=== PATIENT | female | born 1950 ===

== ENCOUNTER 2017-05-12 05:10 | Inpatient (IN) | payer MEDICARE ==
--- NOTE | 2017-05-08 18:00 | Pre-op HX & Phy Repo 2 SIG ---
DATE OF ENDOSCOPY AND SURGERY: 05/12/2017. 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 The patient has a past history of familial adenomatous polyposis. In 1974, she underwent proctocolectomy with Kelin ileostomy. In 1988, she underwent creation of a Kock Pouch that failed and in 1990 underwent creation of a Barros type of Kock Pouch continent ileostomy. She has done well for years intubating three times per day with a 30-Lao intubation catheter and sleeping through the night. She does not have any difficulty with intubation and she does not have incontinence. She has a history of continuous pouchitis for many years, controlled with Cipro 250 mg b.i.d. for the past six years. Recently, the patient developed bulging near the stoma and was concerned about hernia. A local surgeon confirmed the presence of hernia and advised her she needed to have a pouch surgeon perform the repair. Review of her CT scan reveals a parastomal hernia with part of the pouch in the hernia. The patient has also been followed for a small nodule in the tail of the pancreas which has been decreasing in size and has been followed since August 2016 by her primary care physicians. The patient is going to undergo endoscopy of her pouch and then repair of the parastomal hernia. MEDICATIONS: Lisinopril 2.5 mg daily, trazodone 50 mg daily, Cipro 250 mg b.i.d., baclofen 10 mg daily, Creon one capsule three times daily with meals, citalopram 10 mg daily, oxycodone 15 mg every six hours, and vitamin B12 1000 mcg injections once a month. ALLERGIES: Penicillin. OPERATIONS: In addition to the above, the patient required surgery for small bowel obstruction twice before her Barros pouch surgery in 1990. She has undergone total knee replacement x2 and repair of fractured left arm. She has a plate at C4-C5 because of spinal stenosis in 2011. REVIEW OF SYSTEMS: Pancreatic nodule x1 year getting smaller. PHYSICAL EXAMINATION: GENERAL: The patient is 5 feet 4 inches approximately 99 pounds. [place] and will be examined upon arrival and dictated separately. IMPRESSION: 1. Kock Pouch parastomal hernia. 2. Chronic pouchitis involving Kock Pouch. 3. History of familial adenomatous polyposis. 4. Status post multiple abdominal operations. 4.1. Proctocolectomy and Kelin ileostomy 1974. 4.2. Kock Pouch in 1988. 4.3. Laparotomy to release small bowel obstruction x2 between 1988 and 1990 4.4. Creation of Barros continent ileostomy in 1990. 5. History of total knee replacement x2. 6. History of spinal stenosis with plate at C4-C5 in 2011. DISCUSSION: The patient will undergo pouch endoscopy to see the extent of her pouchitis and whether she would be better treated with topical therapy with mesalamine or hydrocortisone solution rather than continuing oral Cipro indefinitely. She also will require repair of the Kock Pouch parastomal hernia possibly with mesh. I have had a full discussion with the patient regarding the nature of the procedures, indications, alternatives, options, and risks including bleeding, infection, recurrence of the hernia with or without use of mesh and need for additional procedures on the Kock Pouch or hernia including potential laparotomy and relocation of the stoma to the left side, injury to adjacent structures or organs, etc. I will have another complete discussion in person when she [place] and all questions will be answered. Tyson Leo M.D. : YUMI JOB#: [id number] CC: ESTELA
[~2017-05-12] VITALS: Ht 162.6 cm; Wt 45.4 kg
[2017-05-12] VITALS (14 sets, daily range): BP systolic 103–135; BP diastolic 60–76
--- NOTE | 2017-05-12 06:57 | Pre-Procedure Note/Attestation ---
Pre-Procedure Note/Attestation Complete Prior to Procedure Planned Procedure: not applicable Procedure Narrative: Kock pouch endoscopy Indications for Procedure Pre-Operative Diagnosis: malfunctioning Kock pouch Attestation I attest that I discussed the nature of the procedure; its benefits; risks and complications; and alternatives (and the risks and benefits of such alternatives ), prior to the procedure, with the patient (or the patient's legal safety representative). I attest that, if there was a reasonable possibility of needing a blood transfusion, the patient (or the patient's legal safety representative) was given the [facility] standardized written summary, pursuant to the [place] Blood Safety Act ([place] Health and Safety Code # 1645, as amended). I attest that I re-evaluated the patient just prior to the surgery and that there has been no change in the patient's H&P, except as documented below:none EUGENE GUDINO May 12, 2017 06:57
[2017-05-12] MEDS ORDERED: metroNIDAZOLE 500mg 100 ML IVPB ONE (07:00)
--- NOTE | 2017-05-12 07:14 | Brief Operative Note ---
Immediate Post Operative Note Operative Note Pre-op Diagnosis: malfunctioning Kock pouch Procedure: Kock pouch endoscopy Post-op Diagnosis: parastomal hernia Post-op Diagnosis: same as pre-op Findings: consistent w/pre-op dx studies Surgeon: brianne Anesthesia: other - none Specimen: none Complications: none Condition: stable Fluids: none Estimated Blood Loss: none Drains: other - 28 abad to Kock pouch Implant(s) used?: EUGENE Gardner May 12, 2017 07:13
[2017-05-12] MEDS ORDERED: ROXICODONE15 MG ORAL (07:19)
[2017-05-12] MEDS ORDERED: CREON DR 36,001 EACH PO (07:19)
[2017-05-12] MEDS ORDERED: BACLOFEN10 MG ORAL (07:19)
[2017-05-12] MEDS ORDERED: CYANOCOBAL1000 MCG/2 IJ (07:19)
[2017-05-12] MEDS ORDERED: MELATONIN10 M2 ORAL (07:19)
[2017-05-12] MEDS ORDERED: CITALOPRAM HBR10 M1 ORAL (07:19)
[2017-05-12] MEDS ORDERED: CIPRO500 MG PO (07:19)
[2017-05-12] MEDS ORDERED: TRAZODONE HCL50 MG ORAL (07:19)
[2017-05-12] MEDS ORDERED: LISINOPRIL2.5 MG ORAL (07:19)
[2017-05-12] MEDS ORDERED: MELATONIN1 M1 SL (07:19)
--- NOTE | 2017-05-12 08:45 | General Progress Note ---
Progress Note Progress Note H&P dictated. Pouch endoscopy normal. Small to moderated parastomal hernia of Barros continent ileostomy stoma. Plan: repair of hernia EUGENE GUDINO May 12, 2017 08:45
--- NOTE | 2017-05-12 08:46 | Pre-Procedure Note/Attestation ---
Pre-Procedure Note/Attestation Complete Prior to Procedure Planned Procedure: not applicable Procedure Narrative: repair of Barros continent ileostomy parastomal hernia Indications for Procedure Pre-Operative Diagnosis: Parastomal hernia of Barros Continent Ileostomy stoma Attestation I attest that I discussed the nature of the procedure; its benefits; risks and complications; and alternatives (and the risks and benefits of such alternatives ), prior to the procedure, with the patient (or the patient's legal market survey representative). I attest that, if there was a reasonable possibility of needing a blood transfusion, the patient (or the patient's legal market survey representative) was given the [facility] standardized written summary, pursuant to the [place] Blood Safety Act ([place] Health and Safety Code # 1645, as amended). I attest that I re-evaluated the patient just prior to the surgery and that there has been no change in the patient's H&P, except as documented below: none EUGENE GUDINO May 12, 2017 08:46
[2017-05-12] MEDS ORDERED: NeoSporin Gu Irrig 1ml Amp IRRIG ONE (09:36)
[2017-05-12] MEDS ORDERED: Bacitracin 50000 Units Vial ONE (09:36)
[2017-05-12] MEDS ORDERED: NS Irrig 1000ml ONE (10:00)
[2017-05-12] MEDS ORDERED: Midazolam 2mg/2ml Inj ONE (10:00)
[2017-05-12] MEDS ORDERED: LR 1000ml ONE (10:00)
[2017-05-12] MEDS ORDERED: Lidocaine 1% MPF 10mg/ml 5ml ONE (10:00)
[2017-05-12] MEDS ORDERED: Sterile Water Irrig 1000ml IRRIG ONE (10:00)
[2017-05-12] MEDS ORDERED: Propofol 200mg/20ml IV ONE (10:00)
[2017-05-12] MEDS ORDERED: Sodium Chloride 10ml vial INJ ONE (10:00)
[2017-05-12] MEDS ORDERED: fentaNYL 100 mcg/2 mL IV ONE (10:00)
[2017-05-12] MEDS ORDERED: DiphenhydrAMINE 50mg/ml Inj ONE (10:04)
[2017-05-12] MEDS ORDERED: LR 1000ml 1,000 ML IVLG SCH (10:49)
--- NOTE | 2017-05-12 10:49 | Anethesia Preoperative Eval ---
Anesthesia Pre-op PMH/ROS General Date of Evaluation: May 12, 2017 Time of Evaluation: 09:50 Anesthesiologist: Alfonso ASA Score: ASA 3 Mallampati Score Class I : Soft palate, uvula, fauces, pillars visible Class II: Soft palate, uvula, fauces visible Class III: Soft palate, base of uvula visible Class IV: Only hard plate visible Mallampati Classification: Class II Surgeon: Ahmet Diagnosis: Parastomal hernia Surgical Procedure: Parastomal hernia repair Anesthesia History: none Family History: no anesthesia problems Allergies: Coded Allergies: PENICILLINS (Verified Allergy, Unknown, 05/09/17) Medications: see eMAR Past Medical History Cardiovascular: Reports: HTN - mild, Denies: CAD, [place], valve dz, arrhythmia, other Pulmonary: Denies: asthma, COPD, CECY, other Gastrointestinal/Genitourinary: Reports: GERD, other - s/p total colectomy, Denies: CRI, ESRD Neurologic/Psychiatric: Reports: depression/anxiety, Denies: dementia, CVA, TIA, other Endocrine: Denies: DM, hypothyroidism, steroids, other HEENT: Denies: cataract (L), cataract (R), glaucoma, NINILCHIK (L), NINILCHIK (R), other Hematology/Immune: Reports: anemia - mild, Denies: DVT, bleeding disorder, other Musculoskeletal/Integumentary: Reports: DJD Other: other - malnourished PMH Narrative: as above PSxH Narrative: ORIF L shoulder, multiple intraabdominal Sx for creation and maintenance of continent pouch Anesthesia Pre-op Phys. Exam Physician Exam Last Vital Signs Date Time Temp Pulse Resp B/P (MAP) Pulse Ox O2 Delivery O2 Flow Rate FiO2 05/12/17 06:13 98.0 63 18 118/60 99 Room Air Constitutional: NAD Neurologic: CN 2-12 intact Cardiovascular: RRR, no M/R/G Respiratory: CTA Gastrointestinal: S/NT/ND Airway Exam Mallampati Score: Class II MO: limited Neck: stiff ROM: limited Teeth: missing Dentures: no upper, no lower Anesthesia Pre-op A/P Labs see chart Studies Pre-op Studies: EKG - NSR Risk Assessment & Plan Assessment: ASA 3 Plan: GA with LMA Status Change Before Surgery: No Pre-Antibiotics Drug: as scheduled Given Within 1 Hr of Incision: Yes Time Given: 10:42 LINDSAY NUGENT M.D. May 12, 2017 10:49
[2017-05-12] MEDS ORDERED: Ketorolac 30mg Inj IV PRN (11:00)
[2017-05-12] MEDS ORDERED: Midazolam 2mg/2ml Inj IVP PRN (11:00)
[2017-05-12] MEDS ORDERED: DiphenhydrAMINE 50mg/ml Inj IVP PRN (11:00)
--- NOTE | 2017-05-12 11:07 | Brief Operative Note ---
Immediate Post Operative Note Operative Note Pre-op Diagnosis: Parastomal hernia of Barros Continent Ileostomy stoma Procedure: Repair of Barros continent ileostomy parastomal hernia Post-op Diagnosis: parastomal hernia of Barros continent ileostomy Post-op Diagnosis: same as pre-op Findings: consistent w/pre-op dx studies Surgeon: brianne [employer] Age Program Associate: girish Anesthesiologist: santos Anesthesia: general Specimen: none Complications: none Condition: stable Fluids: see anesthesia record Estimated Blood Loss: none Drains: other - 28 abad to Barros pouch Implant(s) used?: EUGENE Gardner May 12, 2017 11:07
[2017-05-12] MEDS: oxyCODONE 15mg IR tab ORAL SCH ×3 (11:15→23:44)
[2017-05-12] MEDS ORDERED: LORazepam 1mg tab SL PRN ×2 (11:15)
--- NOTE | 2017-05-12 11:18 | Immediate Post-Op Evaluation ---
Immediate Post-Op Evalulation Immediate Post-Op Evalulation Procedure: Parastomal hernia repair Date of Evaluation: May 12, 2017 Time of Evaluation: 11:17 IV Fluids: 1100 Blood Products: none Estimated Blood Loss: min Urinary Output: none Blood Pressure Systolic: 103 Blood Pressure Diastolic: 56 Pulse Rate: 72 Respiratory Rate: 20 O2 Sat by Pulse Oximetry: 99 Temperature (Fahrenheit): 98.2 Pain Score (1-10): 1 Nausea: No Vomiting: No Complications none Patient Status: reacts, patent, none Hydration Status: adequate LINDSAY NUGENT M.D. May 12, 2017 11:18
[2017-05-12] MEDS: Hydromorphone 0.5mg/0.5ml inj IVP PRN ×2 (11:39→11:56)
[2017-05-12] MEDS: metroNIDAZOLE 500mg 100 ML IV SCH ×3 (12:00→23:30)
[2017-05-12] MEDS: HYDROmorphone 1mg/ml Carpuject SUBQ PRN ×2 (14:52→20:07)
[2017-05-12] MEDS: D5 1/4NS w/KCl 20mEq 1,000 ML IV SCH (15:48)
[2017-05-12] MEDS ORDERED: CREON 36000 UNIT ORAL SCH (18:00)
[2017-05-12] MEDS ORDERED: Pancrease Cap ORAL SCH (18:00)
[2017-05-12] MEDS: Pancrease Cap ORAL SCH (19:57)
--- NOTE | 2017-05-12 20:15 | Procedure Note ---
DATE OF PROCEDURE: 05/12/2017 ENDOSCOPY PROCEDURE REPORT ENDOSCOPIST: Tyson Leo M.D. ANESTHESIA: None. SEDATION: None. PRE-ENDOSCOPY DIAGNOSES: 1. Parastomal hernia involving Barros continent ileostomy. 2. History of familial adenomatous polyposis. 3. Status post multiple abdominal operations including proctocolectomy, Kock pouch, and creation of Barros pouch. POST-ENDOSCOPY DIAGNOSES: 1. Parastomal hernia involving Barros continent ileostomy. 2. History of familial adenomatous polyposis. 3. Status post multiple abdominal operations including proctocolectomy, Kock pouch, and creation of Barros pouch. ENDOSCOPY PERFORMED: Barros continent ileostomy pouch endoscopy. DESCRIPTION OF PROCEDURE: The patient was positioned supine in the GI lab without any anesthesia or sedation given or required. Using a GIF-P140 endoscope, the stoma was entered and the tract was straight into the pouch. There was some retained stool and so I had to remove the endoscope, insert a 28-Iranian Arauz into the pouch and lavage the pouch clear. I then reinserted the endoscope. The pouch was distensible and the mucosa was normal. Retroflexed views revealed a circumferentially well-formed nipple valve. Withdrawal views confirmed the above findings. Following the procedure, I inserted a 28-Iranian Arauz catheter, connected to gravity drainage bag, taped the catheter to the skin and gauze over the stoma. The patient tolerated the endoscopy well and will undergo repair of her parastomal hernia involving her Barros continent ileostomy. Tyson Leo M.D. DR: FRED JOB#: [id number] CC: ESTELA
--- NOTE | 2017-05-12 20:30 | Pre-op HX & Phy Repo 2 SIG ---
DATE OF PROCEDURES: 05/12/2017 HISTORY OF PRESENT ILLNESS: The patient has now [place]. Please see previously dictated history. PHYSICAL EXAMINATION: GENERAL: She is thin, but well developed and well nourished, in no distress. VITAL SIGNS: She is 5 feet 4 inches and approximately 99 pounds. HEENT: Within normal limits. LUNGS: Clear. HEART: Regular rhythm. BREASTS: Without masses. ABDOMEN: Soft with a long midline scar. The stoma of the Kock pouch is low in the right lower quadrant with a small to moderate parastomal hernia PELVIC: Per primary care physician recently. RECTAL: Status post proctectomy. EXTREMITIES: Without edema. Pulses 2+ femoral to pedal bilateral NEUROLOGIC: Physiologic. IMPRESSION: 1. Kock pouch parastomal hernia. 2. History of familial adenomatous polyposis. 3. Status post multiple abdominal operations. 3.1. Proctocolectomy and Kelin ileostomy in 1974. 3.2. Kock pouch in 1988. 3.3. Laparotomy to release small bowel obstruction x2 between 1988 and 1990 3.4. Creation of Barros continent ileostomy in 1990. 4. History of pain syndrome. 5. History of spinal stenosis with plate at C4-C5 in 2011. 6. History of total knee replacement x2. PLAN: The patient will undergo endoscopy of her Barros continent ileostomy and subsequently repair of her parastomal hernia. I have had a full discussion with the patient regarding the procedures, alternatives, options, and risks including bleeding, infection, recurrence with or without mesh, scarring, need for additional procedures subsequently, etc. All questions have been answered. She understands and agrees to proceed. Tyson Leo M.D. DR: FRED JOB#: [id number] CC: ESTELA
[2017-05-12] MEDS: TraZODone 50mg tab ORAL SCH (21:19)
--- NOTE | 2017-05-12 23:30 | Operative Note - Dictated ---
DATE OF OPERATION: 05/12/2017 SURGEON: Tyson Leo M.D. SHOWER ENCLOSURE INSTALLER SURGEON: Steve Payan M.D. ANESTHESIOLOGIST: Sg Hamilton M.D. TYPE OF ANESTHESIA: General. PREOPERATIVE DIAGNOSES: 1. Parastomal hernia involving Barros continent ileostomy. 2. History of familial adenomatous polyposis. 3. Status post multiple abdominal operations. 3.1. Proctocolectomy and Kelin ileostomy in 1974. 3.2. Kock pouch in 1988. 3.3. Laparotomy to release small bowel obstruction x2 between 1988 and 1990 3.4. Creation of Barros continent ileostomy with resection of failed Kock pouch in 1990. POSTOPERATIVE DIAGNOSES: 1. Parastomal hernia involving Barros continent ileostomy. 2. History of familial adenomatous polyposis. 3. Status post multiple abdominal operations. 3.1. Proctocolectomy and Kelin ileostomy in 1974. 3.2. Kock pouch in 1988. 3.3. Laparotomy to release small bowel obstruction x2 between 1988 and 1990 3.4. Creation of Barros continent ileostomy with resection of failed Kock pouch in 1990. OPERATION PERFORMED: Repair of Barros continent ileostomy parastomal hernia. DESCRIPTION OF PROCEDURE: The patient was taken to the operating room and under general anesthesia with sequential compression device stockings in place and having received intravenous antibiotics, the patient was prepped and draped in the usual fashion. The stoma was low in the right lower quadrant and the hernia was superolateral. A transverse incision was made about 3 cm above the stoma dividing subcutaneous tissues with cautery. The hernia sac was circumferentially mobilized and the triangular shaped defect was identified including the external oblique aponeurosis and the transversus tendon and muscle. A 28-Micronesian Arauz was placed through the stoma into the pouch to avoid overly tightening of the hernia repair. It was evident that the pouch was within the hernia sac. This was kept reduced. Antibiotic irrigation was utilized. The repair was accomplished by using interrupted #0 Prolene with an imbricating type repair overlapping the lateral edge on to the medial edge with three 0 Prolene horizontal mattress imbricating sutures. Then 2-0 Prolene was used to tack the edge to the external oblique laterally with some continuous sutures. The Prolene was tacked to the external oblique with 3-0 Vicryl sutures to keep the knots from poking upwards. After confirming that hemostasis was secure, the incision was closed with interrupted 3-0 Vicryl subcutaneous sutures, followed by continuous 4-0 Monocryl subcuticular suture. Tincture of benzoin and half-inch Steri-Strips were applied as dressing. Final sponge and needle counts were correct. The 28-Micronesian Arauz was left in the pouch, confirmed placement with irrigation, it was secured with tape to the skin and connected to a gravity drainage bag for continuous drainage. A dry gauze was placed over the stoma as dressing. Final sponge and needle counts were correct. The patient tolerated the procedure well and left the operating room in good condition. Tyson Leo M.D. DR: MELIZA JOB#: [id number] CC: ESTELA
[2017-05-13] VITALS: BP 116/64
[2017-05-13] MEDS: D5 1/4NS w/KCl 20mEq 1,000 ML IV SCH (01:30)
[2017-05-13] MEDS: HYDROmorphone 1mg/ml Carpuject SUBQ PRN ×2 (03:50→09:35)
[2017-05-13 04:00] VITALS: BP 139/68
[2017-05-13] MEDS: metroNIDAZOLE 500mg 100 ML IV SCH ×4 (05:45→23:34)
[2017-05-13] MEDS: oxyCODONE 15mg IR tab ORAL SCH ×4 (05:50→23:37)
[2017-05-13 08:00] VITALS: BP 117/66
--- NOTE | 2017-05-13 08:24 | General Progress Note ---
Progress Note Progress Note AVSS Comfortable now. Ambulates to bathroom. Abdomen soft, mild mir-incisional erythema around steristrips over incision. Stoma pink Voiding well. Barros pouch continent ileostomy with very thick effluent aspirated Imp. Stable Plan: Continue IV antibiotics today RN supervised BCIR self-intubations EUGENE GUDINO May 13, 2017 08:24
[2017-05-13] MEDS: Pancrease Cap ORAL SCH ×3 (09:09→17:50)
[2017-05-13] MEDS: Ascorbic Acid 500mg tab ORAL PRN ×2 (09:10→21:25)
[2017-05-13] MEDS: Lisinopril 2.5mg tab ORAL SCH (09:12)
[2017-05-13] MEDS: Citalopram Hydrobromide 10 MG TAB ORAL SCH (09:12)
[2017-05-13] MEDS ORDERED: Ketorolac 30mg Inj IV PRN (11:00)
--- NOTE | 2017-05-13 11:53 | 48 Hour Post Anesthesia Eval ---
Post Anesthesia Evaluation Procedure: Parastomal hernia repair Date of Evaluation: May 13, 2017 Time of Evaluation: 09:40 Blood Pressure Systolic: 117 0: 66 Pulse Rate: 73 Respiratory Rate: 18 Temperature (Fahrenheit): 98.4 O2 Sat by Pulse Oximetry: 96 Airway: patent Nausea: No Vomiting: No Pain Intensity: 2 Hydration Status: adequate Cardiopulmonary Status: Stable Mental Status/LOC: patient returned to baseline Follow-up Care/Observations: As per surgery Post-Anesthesia Complications: No anesthetic complication Follow-up care needed: N/A DEEP KOENIG M.D. May 13, 2017 11:53
[2017-05-13 12:05] VITALS: BP 132/71
[2017-05-13] MEDS ORDERED: DiphenhydrAMINE 50mg/ml Inj IVP PRN ×3 (13:15→21:00)
[2017-05-13 16:06] VITALS: BP 135/71
[2017-05-13 20:00] VITALS: BP 118/67
[2017-05-13] MEDS: TraZODone 50mg tab ORAL SCH (21:12)
[2017-05-14] VITALS: BP_SYST 118; BP_SYST 123; BP_DIAS 67; BP_DIAS 68
[2017-05-14 04:00] VITALS: BP 130/79
[2017-05-14] MEDS: metroNIDAZOLE 500mg 100 ML IV SCH (05:20)
[2017-05-14] MEDS: oxyCODONE 15mg IR tab ORAL SCH (05:20)
--- NOTE | 2017-05-14 07:49 | General Progress Note ---
Progress Note Progress Note AVSS Pain controlled with her usual home oxycodone meds. Eating. Intubating her Kock pouch without difficulty Abdomen soft. Incision clean - new steristrips applied. Erythema resolved Kock pouch ileo 930 Imp. doing well Plan: D/C antibiotics Discharge Instructions/limitations discussed f/u 05/21 office EUGENE GUDINO May 14, 2017 07:49
[2017-05-14 08:00] VITALS: BP 125/71
[2017-05-14 08:32] VITALS: BP 125/71
[2017-05-14] MEDS: Pancrease Cap ORAL SCH (08:32)
[2017-05-14] MEDS: Citalopram Hydrobromide 10 MG TAB ORAL SCH (08:32)
[2017-05-14] MEDS: Lisinopril 2.5mg tab ORAL SCH (08:32)
[2017-05-14] MEDS ORDERED: NS Irrig 1000ml ONE (09:37)
[2017-05-14] MEDS ORDERED: Tubing IV Secondary IV ONE (09:37)
--- NOTE | 2017-05-15 13:40 | Discharge Summary ---
Discharge Summary Hospital Course Date of Admission May 13, 2017 at 15:22 Date of Discharge May 14, 2017 at 09:38 Admitting Diagnosis HPI Dyan Carr is a 66 year old female who was admitted on May 13, 2017 at 15: 22 for Kock Pouch Parastomal Hernia Procedures 05/12/17: ENDOSCOPY PERFORMED: Barros continent ileostomy pouch endoscopy. 05/13/17: OPERATION PERFORMED: Repair of Barros continent ileostomy parastomal hernia. 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 The patient has a past history of familial adenomatous polyposis. In 1974, she underwent proctocolectomy with Kelin ileostomy. In 1988, she underwent creation of a Kock Pouch that failed and in 1990 underwent creation of a Barros type of Kock Pouch continent ileostomy. She has done well for years intubating three times per day with a 30-Luxembourger intubation catheter and sleeping through the night. She does not have any difficulty with intubation and she does not have incontinence. She has a history of continuous pouchitis for many years, controlled with Cipro 250 mg b.i.d. for the past six years. Recently, the patient developed bulging near the stoma and was concerned about hernia. A local surgeon confirmed the presence of hernia and advised her she needed to have a pouch surgeon perform the repair. Review of her CT scan reveals a parastomal hernia with part of the pouch in the hernia. The patient has also been followed for a small nodule in the tail of the pancreas which has been decreasing in size and has been followed since August 2016 by her primary care physicians. She was admitted to undergo pouch endoscopy and repair of the Barros ileostomy. On 05/12/2017, she underwent Barros continent ileostomy pouch endoscopy. following day, 05/13/17, she underwent Repair of Barros continent ileostomy parastomal hernia. Postoperatively, she was given pain management and home medications were resumed. On the day of discharge: AVSS Pain controlled with her usual home oxycodone meds. Eating. Intubating her Kock pouch without difficulty Abdomen soft. Incision clean - new steristrips applied. Erythema resolved Kock pouch ileo 930 Imp. doing well Plan: D/C antibiotics Discharge Instructions/limitations discussed f/u 05/21 office PREOPERATIVE DIAGNOSES: 1. Parastomal hernia involving Barros continent ileostomy. 2. History of familial adenomatous polyposis. 3. Status post multiple abdominal operations. 3.1. Proctocolectomy and Kelin ileostomy in 1974. 3.2. Kock pouch in 1988. 3.3. Laparotomy to release small bowel obstruction x2 between 1988 and 1990 3.4. Creation of Barros continent ileostomy with resection of failed Kock pouch in 1990. POSTOPERATIVE DIAGNOSES: 1. Parastomal hernia involving Barros continent ileostomy. 2. History of familial adenomatous polyposis. 3. Status post multiple abdominal operations. 3.1. Proctocolectomy and Kelin ileostomy in 1974. 3.2. Kock pouch in 1988. 3.3. Laparotomy to release small bowel obstruction x2 between 1988 and 1990 3.4. Creation of Barros continent ileostomy with resection of failed Kock pouch in 1990. I have been assigned to complete a discharge summary on this account, I was not involved in the patient management.--LORRAINE Molina Discharge Discharge Disposition Patient was discharged to Home (01) Discharge Diagnoses: Blessing Garcia NP May 15, 2017 13:40
== END 2017-05-14 09:38 | disposition home or self-care (01) | DRG 354 ==
LOC: SDS 05:10 → EDSTATUS 07:00 → 3E 14:25 → OBSVTOIN 05-13 15:22
DX: K43.5 Parastomal hernia without obstruction or gangrene (principal); K91.850 Pouchitis; K94.19 Other complications of enterostomy; Y83.3 Surgical operation with formation of external stoma as the cause of abnormal reaction of the patient, or of later complication, without mention of misadventure at the time of the procedure; Z86.010 Personal history of colon polyps; Z90.49 Acquired absence of other specified parts of digestive tract; Z88.0 Allergy status to penicillin; Z96.653 Presence of artificial knee joint, bilateral
CPT/HCPCS: 87081; 94003; 94150; 96360; 96361; 96366; 96372; 96374; J2250